=== PATIENT | female | born 1990 | race Caucasian/White ===

== ENCOUNTER 2019-10-15 07:59 | Outpatient (CLI) | payer MEDICAID, SELFPAY ==
--- NOTE | 2019-10-15 08:12 | CT_ITS ---
WS: [id number] CT NECK WITH CONTRAST HISTORY: NEOPLASM OF UNCERTAIN BEHAVIOR OF LARYNX;OTHER DYSPHAGIA TECHNIQUE: Contiguous 5 mm axial images are performed through the neck with intravenous contrast. Sag ittal and coronal reformats are also submitted. All CT scans at [facility] use at least o ne of these dose optimization techniques: automated exposure control; mA and/or kV adjustment per pat ient size (includes targeted exams where dose is matched to clinical indication); or iterative recons truction. CONTRAST: CONTRAST: Omnipaque 300; 95 mL IV. DLP: 602.7 mGy.cm COMPARISON: None available. Nasopharynx and oropharynx are negative. Area of decreased attenuation with mild peripheral enhanceme nt centered in the LEFT tonsillar bed. Best seen on image 35 of series 3. There is an area of decreas ed attenuation measures 16 x 12 mm. May represent an area of tonsillitis or developing abscess. This is asymmetric to the RIGHT. Torus tubarius and fossa of Rosenmuller and parapharyngeal fat are normal. Small benign cervical chain lymph nodes. Thyroid gland and salivary glands are normally enhancing with no masses. Mild straightening and reversal the normal cervical lordosis. No cervical spine fracture. Visualized portions of the skull base demonstrate no abnormalities. Orbits and globes are within norm al limits. No soft tissue masses. Extensive soft tissue in the frontal, ethmoid and moderate in the maxillary sinuses. No air-fluid lev els. Lung apices are clear. CT/CT neck w con* [id number] IMPRESSION: 1. Mild change in density in the LEFT peritonsillar bed with some mild periphe ral enhancement. Early inflammatory changes of tonsillitis should be considered although there are no enlarged lymph nodes. 2. Pansinusitis.
--- NOTE | 2019-10-15 08:12 | FL_ITS ---
WS: [id number] ESOPHAGRAM WITH FLUOROSCOPY HISTORY: OTHER DYSPHAGIA; NEOPLASM OF UNCERTAIN BEHAVIOR OF LARYNX COMPARISON: None available. FLUOROSCOPY TIME: 0.7 minutes. Library Technology Instructor radiograph: Normal lateral C-spine. Esophagus and swallowing function: Patient swallowed the barium mixture without difficulty. No strict ures or mucosal abnormalities are identified. Cervical chain osteophytes causing mild indentation enc roachment upon the posterior esophagus with no limitations in swallowing. Gastroesophageal reflux: None. Hiatal hernia: No hiatal hernia. FL/FL barium swallow [id number] IMPRESSION: 1. Unremarkable esophagram. No soft tissue mass. 2. No strictures.
[2019-10-15] MEDS: iohexol 300 mg/mL 100 mL Btl IV (08:43)
== END 2019-10-15 08:00 | disposition home or self-care (01) ==
LOC: RAD 08:05
PROVIDERS: Visit Provider Specialist
DX: D38.0 Neoplasm of uncertain behavior of larynx (principal); R13.19 Other dysphagia; J32.4 Chronic pansinusitis
CPT/HCPCS: 70491; 74220

== ENCOUNTER → 2020-05-26 14:36 | Outpatient (BNVA) | payer MEDICAID, SELFPAY | PROVIDERS: Referring Provider Family Medicine; Visit Provider Podiatrist Foot & Ankle Surgery | DX: M20.11 Hallux valgus (acquired), right foot (principal); M79.671 Pain in right foot | CPT/HCPCS: 73630 ==

== ENCOUNTER → 2020-08-26 10:33 | Outpatient (BNVA) | payer BC, MEDICAID, SELFPAY | PROVIDERS: Visit Provider Obstetrics & Gynecology | DX: Z00.00 Encounter for general adult medical examination without abnormal findings (principal); N89.8 Other specified noninflammatory disorders of vagina; Z12.4 Encounter for screening for malignant neoplasm of cervix | CPT/HCPCS: 80053; 83036; 84146; 84443; 85025; 87481; 87512; 87798; 87799; 88175 ==

== ENCOUNTER → 2023-02-28 11:09 | Outpatient (BNVA) | payer BC, MEDICAID, SELFPAY | PROVIDERS: Visit Provider Podiatrist Foot & Ankle Surgery | DX: M21.611 Bunion of right foot (principal); M21.621 Bunionette of right foot | CPT/HCPCS: 73630 ==

== ENCOUNTER 2023-03-18 05:51 | Day surgery (SDC) | payer BC, MEDICAID, SELFPAY ==
[2023-03-18] VITALS (7 sets, daily range): BP systolic 123–171; BP diastolic 88–111; PULSE 52–80; RESP 13–20; TEMP 36.1–36.6; O2SAT 99–100; BMI 24.3
--- NOTE | 2023-03-18 | XR_ITS ---
WS: [id number] Right foot, C-arm fluoroscopy views, 03/18/2023 Clinical Data: OR PIC. right buniectomy lapidus Comparison: Right foot, 02/28/2023 Findings: Dr. Mares performed an osteotomy of the right first toe proximal phalanx and fusion of the base of the right first metatarsal with right first cuneiform. Impression: Operative changes of the right foot.
--- NOTE | 2023-03-18 06:19 | P.HPUD_ITS ---
Surgery/Procedure H&P Update DATE OF PROCEDURE: March 18, 2023 DATE H&P PERFORMED: 02/28/23 H&P UPDATE INFORMATION: I have reviewed H&P completed within last 30 days, I have examined patient prior to procedure, No changes to prior documentation and H&P is in [facility] EMR on date indicated CHANGES TO PREVIOUS DOCUMENTATION: None PREOP DIAGNOSIS: Right bunion PLANNED PROCEDURE: Operation Date: 03/18/23 07:00 Proposed Procedures p Bunionectomy Lapidus(Right) - Prieto Mares DPM s ?Right Lapidus bunionectomy and Right Krishna osteotomy, 14815, 20764, M21.611(Right) - Prieto Mares DPM
--- NOTE | 2023-03-18 06:19 | PM.OP ---
Operative Report Date of procedure: March 18, 2023 Pre-op diagnosis: Right bunion deformity Post-op diagnosis: Right bunion deformity Procedure done: Right Lapidus bunionectomy. CPT code 06060 Right Krishna osteotomy. CPT code 89446 Implants: [place] 4 mm screw New [place] Lapidus plate [place] 3.5 millimeter screws [place] 10 mm staple Specimens removed/disposition: None Pathology: None Surgeon: Prieto Mares DPM Cradle Placer: Cruz Estimated blood loss: 5 61 IV fluids: 0 Urine output: 0 Complications: None Brief History: Patient examined and evaluated, findings and treatment options were discussed with patient at length.? She is a 32 old female with a progression of bunion deformity to the right foot that is now affecting overall quality of life it has interfered with everyday living.? She states optimal time to have this fixed as now, she does not have her 3 kids with her at the moment.? This will facilitate an easier recovery.? X-ray right foot 3 view shows increased first intermetatarsal angle at 16 degrees with abnormal tibial sesamoid position and position 6.? Also increased hallux valgus angle, this is reducible clinically.? I reviewed at length with the patient, the risks, potential complications, benefits, alternatives, expectations, and typical outcomes associated with the surgery. The risks and potential complications were explained in detail, including but not limited to infection, wound dehiscence or soft tissue complications, bleeding and hematoma, chronic edema, neuritis or nerve damage producing numbness or chronic pain, CRPS, failure to relieve pain or worsening pain, thick / painful / unsightly scar, limited motion / stiffness, malposition, delayed union, malunion, or nonunion, fracture, reaction to implants, anesthetic complications, venous thromboembolism, and deformity recurrence.? I discussed the notion of no regrets with the patient as it pertains to complications and outcomes. The patient seemed to understand the nature of the proposed care and required convalescence. They asked appropriate questions, answered to their satisfaction. They are aware no guarantees can be made as to a satisfactory outcome and they understand there may be other possible unforeseen complications or outcomes not listed here that will be treated accordingly if they arise. There were no written or implied guarantees given to the patient. They gave informed consent to proceed. Procedure: Under mild sedation the patient was brought to the operating room and remained on the gurney in supine position. A timeout was performed. Anesthesia was then administered by the anesthesia service. Local anesthesia was injected by myself consisting of 20 cc of 0.5% Marcaine plain and 20 cc of Exparel. Marcaine was injected in a proximal male block fashion. Exparel was injected subcutaneously proximal to the Clark block in a grid like fashion per prehemmer recommendation. Well-padded pneumatic tourniquet was applied to the right ankle. The right lower extremity was scrubbed, prepped and draped utilizing normal aseptic technique. Right foot was exanguinated with an Esmarch bandage and the tourniquet was inflated to 250 mmHg. Tissue was directed to the dorsal medial aspect of the right first metatarsal base and medial cuneiform where a linear longitudinal incision was made medial and parallel to the extensor hallucis longus tendon. Skin incision was made with #15 blade followed by dissection subcutaneously down to the layer of periosteum utilizing sharp and blunt technique. Care was taken to retract and preserve neurovascular and tendinous structures. All bleeders were ligated and cauterized as necessary. Periosteal incision was made in the first metatarsal base and medial cuneiform were prepped for arthrodesis with more aggressive prep laterally as to allow reduction of intermetatarsal angle. The arthrodesis site was aggressively prepped and denuded of articular surface, flushed with saline and then subchondral drilling with fenestrating drill bit. The first metatarsal was held rectus and parallel to the second metatarsal and fixated from dorsal distal to proximal plantar utilizing a [place] 4 mm screw 30 mm in length with excellent bony apposition and compression noted followed by a application of locking plate dorsal medial aspect of the arthrodesis site with 3.5 mm locking screws x2 proximal and x2 distal with excellent bony apposition and compression noted. Intraoperative C arm in AP, oblique and lateral views confirmed excellent placement of hardware, reduction of intermetatarsal angle and no violation of adjacent joints. Attention was then directed to the first metatarsal phalangeal joint where a linear longitudinal incision was made medial and parallel to the extensor hallucis longus tendon through skin with dissection carried down to the first metatarsal head and proximal phalanx utilizing sharp and blunt technique. Care was taken to retract and preserve neurovascular and tendinous structures. All bleeders were ligated and cauterized as necessary. A medial eminence was resected at the first metatarsal head with all rough edges smoothed and passed from operative field. Krishna osteotomy was performed from medial to lateral maintaining a lateral cortical hinge of the proximal phalanx this was A proximal Krishna. hallux was right distal and the osteotomy was reduced followed by fixation with a [place] 10 mm staple with excellent bony apposition and compression noted and no violation of the metatarsal phalangeal joint visualized directly or with AP, oblique and lateral view of intraoperative fluoroscopy. The medial column was rectus. Smooth range of motion of the first metatarsal from the joint appreciated. Both incisions were irrigated with saline solution and closed in a layered fashion. Periosteum and deep structures closed with 3-0 Vicryl. Subcutaneous tissue closed with 4-0 Vicryl and skin with 4-0 nylon. Both incisions were dressed with Adaptic, sterile 4 x 4's, Kerlix and Heri wrap followed by application of a cam boot. Tourniquet was deflated and a prompt hyperemic response was noted to the distal digits of the right foot. Patient tolerated procedure and anesthesia well and was transferred to the PACU with vital signs stable and vascular status intact. Following a period of postoperative monitoring she will be discharged home. May heel touch for transfers. He was advised to elevate her right foot while resting. Was provided pain medication sent to [facility] to be taken judiciously as prescribed. She was given my cell phone number and to contact me with any postoperative questions or concerns. Was also given at home care instructions and scheduled follow-up.
[2023-03-18] MEDS: CELEcoxib 200 mg Capsule 400 MG PO (06:25)
[2023-03-18] MEDS: gabapentin 300 mg Capsule PO (06:26)
[2023-03-18] MEDS: sodium chloride 0.9% 1,000 ML 30 ML IV (06:29)
[2023-03-18 06:57] LABS: OR HCG Qualitative Urine Negative (Negative)
[2023-03-18] MEDS: ceFAZolin 2,000 MG in sodium chloride 0.9% (plus) 50 ML 100 MG IV (07:02)
[2023-03-18] MEDS: BUPivacaine liposome 13.3 mg/mL SDV 10 mL 266 MG INJECTION (07:10)
[2023-03-18] MEDS: BUPivacaine 0.5% INJ 30 mL INJECTION (07:10)
--- NOTE | 2023-03-18 07:19 | ANES.PREANE2 ---
Pre-Anesthetic Assessment Height/Weight: Height 1.6 m Weight 62.142 kg Temp Pulse Resp BP Pulse Ox O2 Del Method 97.9 F 71 18 171/111 99 Room Air 03/18/23 06:07 03/18/23 06:07 03/18/23 06:07 03/18/23 06:07 03/18/23 06:07 03/18/23 06:07 Preop Diagnosis: Right bunion Operation Date: 03/18/23 07:00 Proposed Procedures p Bunionectomy Lapidus(Right) - Prieto Mares DPM s ?Right Lapidus bunionectomy and Right Krishna osteotomy, 89142, 78448, M21.611(Right) - Prieto Mares DPM Familial anesthetic complications: none Was Beta Ildefonso taken within 24 hours: N/A Was Clonidine taken within 24 hours: N/A Last intake: Intake Last Liquid Date 03/17/23 Last Liquid Time 22:00 Last Solid Date 03/17/23 Last Solid Time 23:00 Social No alcohol and No tobacco Exam alert, oriented x 3, clear to auscultation bilaterally and regular rate & rhythm Airway Submandibular: within normal limits Cervical ROM: within normal limits Mallampati: Class II Dentition: chipped (several caries) Neuropsych Schizophrenia Anesthetic Plan ASA status: 2 Anesthesia: Choice Medications/Allergies Home Medications Medication Instructions Recorded Confirmed Last Taken Type ibuprofen 800 mg tablet 800 mg PO TID 05/26/20 03/18/23 03/17/23 History duloxetine 20 mg capsule,delayed 60 mg PO DAILY 03/17/23 03/18/23 03/16/23 History release (Cymbalta) lumateperone 42 mg capsule 42 mg PO DAILY 03/17/23 03/18/23 03/16/23 History (Caplyta) tizanidine 2 mg tablet 4 mg PO DAILY 03/17/23 03/18/23 03/16/23 History hydrocodone 10 mg-acetaminophen 1 tab PO Q6H PRN pain 7 days #28 03/18/23 Unknown Rx 325 mg tablet tabs Allergies Allergy/AdvReac Type Severity Reaction Status Date / Time No Known Allergies Allergy Verified 03/17/23 09:30 Current Medications Generic Name Dose Route Start Last Admin Trade Name Freq PRN Reason Stop Dose Admin Sodium Chloride 1,000 mls @ 30 mls/hr 03/18/23 06:00 03/18/23 06:29 Sodium Chloride 0.9% IV 03/19/23 05:59 30 mls/hr .Q24H [place] Administration PFSH Anesthesia Medical History Anxiety and depression Degenerative disc disease, lumbar Osteophyte of cervical spine Spondylisthesis Family History Grandmother Chronic kidney disease (CKD) Maternal Hypertension maternal and paternal Mother Hyperlipidemia Grandfather Hypertension maternal and paternal Denies family history of Diabetes Ovarian cyst CAD (coronary artery disease) Clotting disorder Anesthesia complication Family history of thyroid problem Bleeding disorder Cancer Data Anesthesia Cardiac Studies: No Data to Display
--- NOTE | 2023-03-18 13:54 | ANE.PACU2 ---
Inpatient post-anesthesia follow up: Airway intact: Yes Vital signs: Temperature 98 F Pulse Rate 77 Respiratory Rate 17 Blood Pressure 142/90 Pulse Oximetry 100 Oxygen Delivery Me thod Room Air Oxygen Flow Rate 6 Fraction of Inspir ed Oxygen Hydration adequate: Yes Nausea and vomiting: No Pain level: 1 Mental status: Baseline
== END 2023-03-18 09:30 | disposition home or self-care (01) ==
PROVIDERS: Anesthesiology; PCP Family Medicine; Visit Provider Podiatrist Foot & Ankle Surgery
PROC: (CPT 28297; principal; 2023-03-18 07:00)
PROC: (CPT 28298; 2023-03-18 07:00)
DX: M21.611 Bunion of right foot (principal); F20.9 Schizophrenia, unspecified
CPT/HCPCS: 28297; 28298; 73620; 76000; 81025; 84703; C1713; C9290; J0690; J1100; J2250; J2405; J2704; J3490; J7030

== ENCOUNTER → 2023-03-31 14:23 | Outpatient (BNVA) | payer BC, MEDICAID, SELFPAY | PROVIDERS: PCP Family Medicine; Visit Provider Podiatrist Foot & Ankle Surgery | DX: Z98.890 Other specified postprocedural states (principal) | CPT/HCPCS: 73630 ==

== ENCOUNTER → 2023-04-14 13:37 | Outpatient (BNVA) | payer BC, MEDICAID, SELFPAY | PROVIDERS: PCP Family Medicine; Visit Provider Podiatrist Foot & Ankle Surgery | DX: Z98.890 Other specified postprocedural states (principal) | CPT/HCPCS: 73630 ==

== ENCOUNTER → 2023-06-01 10:27 | Outpatient (BNVA) | payer BC, MEDICAID, SELFPAY | PROVIDERS: PCP Family Medicine; Visit Provider Podiatrist Foot & Ankle Surgery | DX: Z98.890 Other specified postprocedural states (principal) | CPT/HCPCS: 73630 ==

== ENCOUNTER → 2023-11-16 07:46 | Outpatient (BNVA) | payer BC, MEDICAID, SELFPAY | PROVIDERS: PCP Family Medicine; Visit Provider Podiatrist Foot & Ankle Surgery | DX: M21.611 Bunion of right foot (principal) | CPT/HCPCS: 73630 ==

== ENCOUNTER 2025-01-01 10:30 | Outpatient (CLI) | payer BC, MEDICAID, SELFPAY ==
--- NOTE | 2025-01-01 11:00 | MR_ITS ---
WS: [id number] MRI BRAIN WITHOUT AND WITH CONTRAST, ATTENTION DIRECTED TO THE PITUITARY GLAND HISTORY: GALACTORRHEA NOT ASSOCIATED WITH CHILDBIRTH COMPARISON: None available. TECHNIQUE: Diffusion-weighted imaging, axial T2 sequence, and postcontrast images in 3 planes are performed. High-resolution coronal and sagittal imaging performed through the pituitary region with and without intravenous gadolinium. Normal height pituitary gland. There is no deviation of the infundibulum or optic chiasm. Normal signal on the precontrast imaging. On the postcontrast high-resolution sequences there is no identifiable macroadenoma or microadenoma or mass. Symmetric central appearance of the infundibulum. No mass or signal abnormality encasing the carotid arteries. Normal diffusion imaging. No significant atrophy or volume loss. Normal small cerebellopontine angles and cerebrum. No prior infarct. No inferior displacement the cerebellar tonsils. Normal hippocampal formations. Normal ventricles. No hemorrhage. Extensive mucoperiosteal thickening involving the sinuses. LEFT frontal sinus mucoperiosteal thickening extends into the frontal ethmoid recesses bilaterally. Diffuse mucoperiosteal thickening involving the sphenoid sinuses and ethmoid sinuses. Mucoperiosteal thickening bilaterally in the maxillary sinuses. Trace tiny air-fluid level on the LEFT. Mastoid air cells are clear. No enhancing masses within the brain. Normal appearance of the [place] and dural venous sinuses. MR/MR pituitary wo/w con* [id number] IMPRESSION: 1. Normal pituitary gland. No mass or abnormal enhancement. 2. No deviation of the infundibulum or optic chiasm. 3. Mild diffuse pansinusitis. 4. No prior infarcts or ischemia. No enhancing mass.
[2025-01-01] MEDS: gadobenate dimeglumine 20 mL vial 15 ML IV (11:43)
== END 2025-01-01 10:31 | disposition home or self-care (01) ==
LOC: RAD 10:31
PROVIDERS: PCP Family Medicine; Visit Provider Family Medicine
DX: N64.3 Galactorrhea not associated with childbirth (principal)
CPT/HCPCS: 70553; A9577

== ENCOUNTER → 2025-01-16 11:33 | Outpatient (BNVA) | payer BC, MEDICAID, SELFPAY | PROVIDERS: PCP Family Medicine; Visit Provider Podiatrist Foot & Ankle Surgery | DX: M79.671 Pain in right foot (principal); M21.611 Bunion of right foot | CPT/HCPCS: 73630 ==